=== PATIENT | female | born 1980 | race Caucasian/White ===

== ENCOUNTER 2019-04-19 12:29 | Emergency (ER) | payer SELFPAY ==
[~2019-04-19] VITALS: Ht 165.1 cm; Wt 68.0 kg
[2019-04-19 14:08] VITALS: BP 120/76
[2019-04-19] MEDS ORDERED: GABAPENTIN 300 MG CAP PO ONE (14:30)
[2019-04-19] MEDS ORDERED: KETOROLAC TROMETH 60MG/2ML VIAL IM ONE (14:30)
== END 2019-04-19 14:56 | disposition home or self-care (01) ==
LOC: ER 12:34
DX: G89.29 Other chronic pain (principal); M54.5 Low back pain; F17.210 Nicotine dependence, cigarettes, uncomplicated; Z88.2 Allergy status to sulfonamides; Z88.1 Allergy status to other antibiotic agents; Z76.0 Encounter for issue of repeat prescription
CPT/HCPCS: 96372; 99283; J1885